=== PATIENT | male | born 1990 | race African-American/Black ===

== ENCOUNTER 2024-11-05 10:28 | Emergency (ER) | payer SELFPAY ==
[~2024-11-05] VITALS: Ht 190.5 cm; Wt 95.0 kg
[2024-11-05 10:29] VITALS: TEMP 98.4; O2SAT 98
[2024-11-05] MEDS: HYDROCODONE/ACETAMINOPHEN 10/325MG TABLET PO ONE (14:13)
[2024-11-05] MEDS: LIDOCAINE HCL 1% 20ML VIAL INFIL ONE (16:00)
[2024-11-05] MEDS ORDERED: CEPH500C2 MT (16:11)
[2024-11-05] MEDS ORDERED: BO1 TP (16:11)
[2024-11-05] MEDS ORDERED: ACET-2708 MT (16:11)
[2024-11-05] MEDS ORDERED: IBUP-1525 MT (16:11)
[2024-11-05 18:45] VITALS: BP 145/87; PULSE 76; RESP 14; O2SAT 99
== END 2024-11-05 18:47 | disposition home or self-care (01) ==
LOC: ER 10:28
DX: S51.812A Laceration without foreign body of left forearm, initial encounter (principal); S80.211A Abrasion, right knee, initial encounter; S80.212A Abrasion, left knee, initial encounter; V79.9XXA Bus occupant (driver) (passenger) injured in unspecified traffic accident, initial encounter; Y93.89 Activity, other specified; Y92.89 Other specified places as the place of occurrence of the external cause; Y99.8 Other external cause status
CPT/HCPCS: 73060; 73090; 12005; 99284; J3490; Z7610 ×4